=== PATIENT | male | born 1980 | race Caucasian/White ===

== ENCOUNTER 2024-03-13 09:45 | Emergency (ER) | payer OTHER, SELFPAY ==
[2024-03-13 09:59] VITALS: BP 130/61; PULSE 74; RESP 18; TEMP 36.4; O2SAT 98
--- NOTE | 2024-03-13 10:18 | ED.EYEPROB ---
HPI - Eye Problem General Chief complaint: Eye Problems Stated complaint: ?pink eye Source: patient Mode of arrival: ambulatory Limitations: no limitations History of Present Illness HPI Narrative: 44-year-old male presents to [facility] with complaints of right eye redness, irritation, purulent drainage and matting since yesterday. Patient denies injury to his eye. Patient does have implanted contacts which he has had for the past 2-3 years. Patient denies headache, fever, body aches, chills, nausea vomiting or diarrhea. MD chief complaint: eye redness Onset (ago): day(s) (1) Location: right eye Eye Symptoms: burning, redness and discharge Associated symptoms: none Treatments Prior to Arrival: none Related Data Home Medications Medication Instructions Recorded Confirmed azelastine 137 mcg (0.1 %) nasal 2 spray intranasal DAILY 03/13/24 03/13/24 spray cetirizine 10 mg tablet (Zyrtec) 10 mg PO DAILY 03/13/24 03/13/24 pantoprazole 40 mg tablet,delayed 40 mg PO BID 03/13/24 03/13/24 release syringe with needle 3 mL 23 x 1 03/13/24 03/13/24 (BD Luer-Justen Syringe) testosterone cypionate 200 mg/mL 200 mg IM WEEKLY 03/13/24 03/13/24 intramuscular oil tirzepatide (weight loss) 12.5 12.5 mg subcut WEEKLY 03/13/24 03/13/24 mg/0.5 mL subcutaneous pen injector Allergies Allergy/AdvReac Type Severity Reaction Status Date / Time Penicillins AdvReac Mild Rash Verified 03/13/24 09:53 Review of Systems Constitutional: Constitutional: Denies chills, Denies fatigue, Denies fever(s) and Denies weakness Eyes: Eyes: Denies change in vision and Denies photophobia Comments: Right eye redness, irritation, drainage and matting ENT: Denies dizziness, Denies epistaxis and Denies nasal congestion Cardiovascular: Cardiovascular: Denies chest pain Respiratory: Respiratory: Denies chest congestion, Denies cough, Denies dyspnea and Denies wheezing Gastrointestinal: Gastrointestinal: Denies diarrhea, Denies nausea and Denies vomiting Musculoskeletal: Musculoskeletal: Denies arthralgias Integumentary/Breasts: Skin/Breast: Denies erythema, Denies rash and Denies skin ulcer Neurologic: Denies syncope and Denies headache(s) [facility] Family History Family History Grandparent Hypertension Carcinoma of colon Family history of coronary artery disease Diabetes mellitus Social History Social History Smoking status: Never smoker Alcohol intake: current Comments At time of signature, I agree with nursing past medical, surgical, social and family history. There is no relevant family history pertinent to the presenting complaint. Exam Const: General: healthy appearing and no acute distress Nutritional Appearance: well nourished Orientation/consciousness: patient oriented x3 Limitations: no limitations HENMT: Head: normal to inspection Eyes: Conjunctivae: conjunctival abnormality right conjunctival injection and discharge purulent Pupils: Equal, round and reactive pupils present Direct Ophthalmoscopy: no photophobia Neck: Neck: normal visual inspection Resp: Effort & Inspection: normal respiratory effort and not labored Auscultation: clear to auscultation bilaterally, no crackles, no rales, no rhonchi and no wheezes Cardio: Rate: regular rate Rhythm: regular rhythm Heart sounds: no murmurs Skin: General skin exam: normal color Rashes: no rashes Wounds: no wounds Neuro: General: patient oriented x3 Speech: normal speech Gait exam (Neuro): Normal gait present Extrem: General: normal to inspection Psych: Affect: normal affect Attitude: cooperative Course Course Level of Care: Express Care Visit Vital Signs Vital signs: Vital Signs Temperature 36.4 C L 03/13/24 09:59 Pulse Rate 74 03/13/24 09:59 Respiratory Rate 18 03/13/24 09:59 Blood Pressure 130/61 03/13/24 09:5
== END 2024-03-13 10:26 | disposition home or self-care (01) ==
PROVIDERS: Emergency Provider Nurse Practitioner Family
DX: H10.9 Unspecified conjunctivitis (principal)
CPT/HCPCS: 99213; G0463